=== PATIENT | male | born 1940 | race Caucasian/White ===

== ENCOUNTER 2024-10-13 09:04 | Outpatient (CLI) | payer MEDICARE, OTHER, SELFPAY | END 2024-10-13 09:05 | disposition home or self-care (01) | LOC: KYNREF 09:12 | PROVIDERS: PCP Nurse Practitioner Family; Visit Provider Nurse Practitioner Family | DX: I50.22 Chronic systolic (congestive) heart failure (principal); Z51.81 Encounter for therapeutic drug level monitoring | CPT/HCPCS: 80048 ==

== ENCOUNTER 2024-11-26 10:16 | Outpatient (CLI) | payer MEDICARE, OTHER, SELFPAY | END 2024-11-26 10:17 | disposition home or self-care (01) | PROVIDERS: PCP Nurse Practitioner Family; Visit Provider Nurse Practitioner Family | DX: Z01.818 Encounter for other preprocedural examination (principal) | CPT/HCPCS: 80053; 85025 ==

== ENCOUNTER 2024-12-02 13:40 | Outpatient (CLI) | payer MEDICARE, OTHER, SELFPAY | END 2024-12-02 13:41 | disposition home or self-care (01) | LOC: RAD 13:43 | PROVIDERS: PCP Nurse Practitioner Family; Visit Provider Nurse Practitioner Family | DX: I50.22 Chronic systolic (congestive) heart failure (principal); I13.0 Hypertensive heart and chronic kidney disease with heart failure and stage 1 through stage 4 chronic kidney disease, or unspecified chronic kidney disease; Z86.79 Personal history of other diseases of the circulatory system | CPT/HCPCS: 93306 ==

== ENCOUNTER 2024-12-14 06:12 | Day surgery (SDC) | payer MEDICARE, OTHER, SELFPAY ==
[2024-12-14] VITALS (7 sets, daily range): BP systolic 104–144; BP diastolic 68–101; PULSE 45–52; RESP 12–16; TEMP 36.1–36.8; O2SAT 92–99; BMI 27.3
[2024-12-14] MEDS: LACTATED RINGERS 1000 ML 1,000 ML 100 ML IV (06:55)
[2024-12-14] MEDS: SODIUM CHLORIDE 0.9 % (FLUSH) 10 ML SYRINGE IVF (06:55)
--- NOTE | 2024-12-14 07:25 | W.PM.H&PU ---
History & Physical Update History & Physical Update H&P Reviewed and patient assessed: The following changes are noted below H&P Updates: Eliquis held for 5 days pre-op
--- NOTE | 2024-12-14 07:26 | P.GSOP_ITS ---
Operative Note Date of procedure: 12/14/24 Pre-op diagnosis: left inguinal hernia Post-op diagnosis: same Type of Procedure: Open repair left inguinal hernia with mesh Indications: The patient is an 84-year-old male who notice some groin pain while mowing lawn this summer. He was found to have a left-sided inguinal hernia. After discussi on of options, he elected to proceed with repair. Procedure Description: After discussing the risks and benefits of the procedure, the patient signed i nformed consent.? The operative site was marked and the patient was brought to the operating room and placed on the operating table in supine position.? Care was taken to pad the patient's pressure points.?? The patient was then given sedation by anesthesia.?? The operative site was then prepped and draped in the usual sterile fashion.? A time-out was then performed. Local anesthetic was injected into the skin and subcutaneous tissue overlying the inguinal canal on the left. An oblique incision was made over the external ring. Dissection was carried down into the subcutaneous tissue using cautery until the external oblique fascia was encountered. This was cleared off. The external ring was identified and after injection of more local anesthetic, the external oblique was incised using a knife. This was extended using the Metzenbaum scissors with care to dissect the underlying cord structures away from the fascia before cutting. The cord was cleared from the inside of the inguinal canal and looped with a [place] drain. The ilioinguinal nerve was identified and carefully dissected the cord structures. An indirect inguinal hernia was identified. The hernia was dissected off of the cord structures. The herniated tissue was a large amount of preperitoneal fat. This was reduced into the abdomen. No additional peritoneal sac was identified after careful dissection through the cord structures. The internal ring was noted to be quite large and so it was reapproximated by closing the floor of the inguinal canal using 3-0 Vicryl to keep this tissue reduced during the repair. A piece of polypropylene mesh was obtained and cut to size. This was secured to the pubic tubercle using to 0 Prolene on a double-armed suture. The Prolene was run along the inguinal ligament inferiorly and along the transversalis fascia superiorly, securing the tails around the cord and re-creating the internal ring. The ring was just large enough to permit my fingertip. The wound was examined for hemostasis which was found to be excellent. The ilioinguinal nerve was examined. It was intact and its path was away from the mesh. An ilioinguinal nerve block was performed. The external oblique fascia was then reapproximated with absorbable suture. The patient is on Eliquis and had fair amount of subcutaneous space exposed, therefore I applied B[place] to the wound bed. The wound was then closed in layers including Melia's fascia and the dermis with absorbable suture. The skin was then closed with a running subcuticular suture. Glue was then applied. Instrument, sponge, and needle counts were correct at the end of the case. The patient was woken and taken to the recovery area in stable condition. ? The patient tolerated the procedure well. Findings: Indirect left inguinal hernia Anesthesia: MAC Surgeon: Marcela Fuller MD Estimated blood loss (mL): 5 Condition: stable Disposition: same day
[2024-12-14] MEDS: LIDOCAINE 1 % PF 30 ML INJECTION (08:48)
[2024-12-14] MEDS: BUPIVACAINE 0.5% 30 ML INJECTION (08:48)
--- NOTE | 2024-12-14 09:05 | P.ANES_ITS ---
Anesthesia Charges Start Date/Time Anesthesia Start Date: 12/14/24 Anesthesia Start Time: 07:22 Stop Date/Time Anesthesia Stop Date: 12/14/24 Anesthesia Stop Time: 09:04 Summary Extremes of Age - Over 70 or under 1: BYPRODUCTS EXTRACTOR Coding CPT Codes CPT Codes: ANESTH REPAIR OF HERNIA - 02651 ([id number]) P4 - PT W/SEV SYS DIS THREAT LIFE, QK - CREASING MACHINE OPERATOR 2-4 CNCRNT ANES PROC, QX - BYPRODUCTS EXTRACTOR SVC W/ MD MED DIRECTION Additional Codes: Summary - Extremes of Age - Over 70 or under 1: BYPRODUCTS EXTRACTOR ([id number])
--- NOTE | 2024-12-14 09:05 | W.ANESCHARGE ---
Anesthesia Charges Start Date/Time Anesthesia Start Date: 12/14/24 Anesthesia Start Time: 07:22 Stop Date/Time Anesthesia Stop Date: 12/14/24 Anesthesia Stop Time: 09:04 Summary Extremes of Age - Over 70 or under 1: LINE OUT MAN Coding CPT Codes CPT Codes: ANESTH REPAIR OF HERNIA - 59205 ([id number]) P4 - PT W/SEV SYS DIS THREAT LIFE, QK - LUMBER SALVAGER 2-4 CNCRNT ANES PROC, QX - LINE OUT MAN SVC W/ MD MED DIRECTION Additional Codes: Summary - Extremes of Age - Over 70 or under 1: LINE OUT MAN ([id number])
--- NOTE | 2024-12-14 09:54 | W.ANESCHARGE ---
Anesthesia Charges Start Date/Time Anesthesia Start Date: 12/14/24 Anesthesia Start Time: 07:22 Stop Date/Time Anesthesia Stop Date: 12/14/24 Anesthesia Stop Time: 09:04 Summary Extremes of Age - Over 70 or under 1: MDA Coding CPT Codes CPT Codes: ANESTH REPAIR OF HERNIA - 21876 ([id number]) QK - AMBULATORY ANALYST 2-4 CNCRNT ANES PROC, QX - MUSIC VIDEO DIRECTOR SVC W/ MD MED DIRECTION, P4 - PT W/SEV SYS DIS THREAT LIFE Additional Codes: Summary - Extremes of Age - Over 70 or under 1: MDA ([id number])
[2024-12-14] MEDS: ACETAMINOPHEN 325 MG TABLET 650 MG PO (10:12)
--- NOTE | 2024-12-14 11:20 | SUR.PHASEII ---
Pt able to urinate post surgery. PT waiting for his ride. VSS, no questions at this time.
== END 2024-12-14 11:44 | disposition home or self-care (01) ==
PROVIDERS: PCP Nurse Practitioner Family; Visit Provider Surgery
PROC: (CPT 49505; principal; 2024-12-14 07:30)
DX: K40.90 Unilateral inguinal hernia, without obstruction or gangrene, not specified as recurrent (principal)
CPT/HCPCS: 49505; 00830; 99100; A9270; C1781; J0665; J0690; J2003; J2405; J2704; J3010; J3490; J7120